=== PATIENT | female | born 2000 | race Two or more races ===

== ENCOUNTER 2023-09-16 16:19 | Emergency (ER) | payer OTHER ==
[~2023-09-16] VITALS: Ht 157.5 cm; Wt 50.4 kg
[2023-09-16 18:50] VITALS: BP 120/90; PULSE 71; RESP 16; TEMP 98; O2SAT 97
== END 2023-09-16 19:03 | disposition home or self-care (01) ==
LOC: ER 16:19
DX: S51.011A Laceration without foreign body of right elbow, initial encounter (principal); S81.011A Laceration without foreign body, right knee, initial encounter; V29.99XA Rider (driver) (passenger) of other motorcycle injured in unspecified traffic accident, initial encounter; Y93.55 Activity, bike riding; Y92.89 Other specified places as the place of occurrence of the external cause; Y99.8 Other external cause status